=== PATIENT | female | born 1945 | race Caucasian/White ===

== ENCOUNTER 2018-04-25 06:57 | Inpatient (IN) ==
[2018-04-25] MEDS ORDERED: Chlorhexidine Gluconate 2% 1 Pack (2 Cloths) TOPICAL SCH (07:30)
[2018-04-25] MEDS ORDERED: Metoprolol Tartrate 25 MG Tablet PO SCH (07:30)
[2018-04-25] MEDS ORDERED: Sodium Chlor 0.9% Inj 500 ML IV.SIG SCH (08:00)
[2018-04-25] MEDS ORDERED: Vancomycin Inj 1 GM/200 ML PIGGYBACK IV.SIG ONE (08:10)
[2018-04-25] MEDS ORDERED: Dexamethasone Inj 20 MG/5 ML Vial ONE (08:11)
[2018-04-25] MEDS ORDERED: Bupivacaine Liposomal PF 1.3% Inj 20 ML Vial ONE (09:00)
[2018-04-25] MEDS ORDERED: Bupivacaine PF 0.5% Inj 30 ML Vial ONE (09:01)
[2018-04-25] MEDS ORDERED: Bupivacaine/Dextrose 0.75% Inj 2 ML Ampul ONE (09:01)
[2018-04-25] MEDS ORDERED: Propofol Inj 500 MG/50 ML Vial ONE (09:30)
[2018-04-25] MEDS ORDERED: Chlorhexidine 4% Topical 120 APPLIC/120 ML Bottle TOPICAL SCH (10:30)
[2018-04-25] MEDS ORDERED: Sodium Chlor 0.9% Inj 73.07 ML, Ropivacaine 0.5% PF Inj 24.63 ML, Ketorolac Inj 30 MG, ... P-ARTICULR SCH ×5 (10:30)
[2018-04-25] MEDS ORDERED: Vancomycin Inj 1,000 MG in Sodium Chlor 0.9% Inj 250 ML IV.SIG SCH (11:00)
[2018-04-25] MEDS ORDERED: ceFAZolin Inj 2,000 MG in Sodium Chlor 0.9% Inj 100 ML IV.SIG SCH (11:00)
[2018-04-25] MEDS ORDERED: Tranexamic Acid Inj 656 MG in Sodium Chlor 0.9% Inj 100 ML IV.SIG SCH ×2 (11:00→14:00)
[2018-04-25] MEDS ORDERED: Aluminum/Magnesium/Simethacone Susp 30 ML UDC PO PRN (11:40)
[2018-04-25] MEDS ORDERED: Bisacodyl 10 MG Supp RECTAL PRN (11:40)
[2018-04-25] MEDS ORDERED: Post-op Orders (for Pharmacy) OTHER STA (11:40)
[2018-04-25] MEDS ORDERED: Morphine Inj 4 MG/ML Vial IV.PUSH PRN (11:40)
--- NOTE | 2018-04-25 11:44 | P.OP ---
- Preoperative Diagnosis (1) Osteoarthritis of left knee - Postoperative Diagnosis (1) Osteoarthritis of left knee Date of procedure: 04/25/18 Procedure: Left total knee arthroplasty Surgeon: Parth Londono MD Mixer Lever Operator: SAE Do The surgical procedure was assisted by my Advanced Registered Nurse Practitioner. My CIGARETTE ROLLER presence was necessary throughout this case for the manipulation and positioning of the surgical extremity. My CIGARETTE ROLLER was assisting me throughout the duration of this procedure. The skill set of an Advance Registered Nurse Practitioner was medically necessary to complete this procedure. During the surgical case, the surgical assistant certified was working at the back table and the Advance Registered Nurse Practitioner was directly assisting me. Operation and Findings: IMPLANTS: DePuy Attune: Patella: size 35. Femur, posterior stabilized size 6 narrow. Tibia, rotating platform size 6. Tibial insert, rotating platform, posterior stabilized size 7 mm thickness. ESTIMATED BLOOD LOSS: 75 cc TOURNIQUET TIME: 36 minutes at 250 mmHg pressure. JUSTIFICATION FOR PROCEDURE: The patient has end-stage osteoarthritis to the knee. There is an attached conservative measures pathway form in the chart that describes the nonoperative measures that were undertaken prior to consideration of surgical management. The patient understood the risks and benefits of surgical management. See my office notes for further details PROCEDURE: The patient was brought back to the operative theatre. Adequate anesthesia was obtained. The patient received intravenous vancomycin and Ancef. The lower extremity was prepped and draped in the usual sterile fashion.The leg was exsanguinated, the tourniquet was raised. A standard anterior incision was performed followed by medial parapatellar arthrotomy was performed. End-stage arthritis was identified. Osteotomy of the patella was performed. We drilled holes for the patella. We trialed the patella component. We placed an intramedullary guide into the distal femur. We ultimately resected 11 mm off of the distal femur in 5 degrees of valgus. The remnants of the ACL and PCL were resected. Osteotomy of the proximal tibia was performed, resecting 7 mm off of the medial side. This was done in order to make sure that we had taken off enough to get under the significant lateral tibial plateau erosion. This was done with 3 degrees of posterior slope using an extramedullary guide. The distal end of the guide was placed in the mid aspect of the ankle. We did work on ligament balancing at this point. Ultimately we did need to recess the lateral collateral ligament and the iliotibial band. The popliteus tendon remains intact. This gave us very good ligament balancing. Prior to this there was significant imbalance. The femur was sized, and four chamfer cuts were completed in 3 of external rotation. We then cut the central box in the distal femur to replace the PCL. We resected the remnants of the menisci and removed osteophytes off of the femur and tibia. We then trialed the knee. We punched the tibia for the keel, and then used standard technique to cement in components. Excess cement was removed. We trialed the knee again and the final polyethylene thickness was chosen to provide extension to 0 degrees, and flexion of 140 degrees to gravity. The ligaments were appropriately balanced. Lateral release was necessary to obtain excellent patellofemoral tracking. The tourniquet was released and adequate hemostasis was obtained. An intra- articular injection of a ropivacaine cocktail was injected. The posterior knee was inspected for excess cement, which was removed. The final polyethylene was put into position after thorough irrigation. We then closed deep fascia with a #2 Stratafix followed by skin with 2-0 Vicryl followed by Dermabond dressing. Postop plan is to weight-bear as tolerated. DVT prophylaxis will be performed with SCDs, PATRICIA bearden, early mobilization, and Lovenox followed by aspirin.
[2018-04-25] MEDS ORDERED: Glycopyrrolate Inj 1 MG/5 ML Syringe IV.PUSH ONE (12:00)
[2018-04-25] MEDS ORDERED: Phenylephrine/NS 1000 MCG/10ML Syringe IV.PUSH ONE (12:00)
[2018-04-25] MEDS ORDERED: Lidocaine PF 1% Inj 5 ML Syringe INFILTRATN ONE (12:00)
[2018-04-25] MEDS ORDERED: fentaNYL Citrate Inj 100 MCG/2 ML Ampul ONE (12:09)
--- NOTE | 2018-04-25 13:34 | XR ---
EXAM DATE: 04/25/2018 1:18 PM EDT AGE/SEX: 72 years / Female INDICATIONS: Post op left total knee replacement. CLINICAL DATA: This is the patient's initial encounter. Patient reports that signs and symptoms have been present for 1 day and indicates a pain score of 5/10. MEDICAL/SURGICAL HISTORY: None. None. COMPARISON: No prior exams available for comparison. FINDINGS: AP and lateral views of the knee were obtained and demonstrate the patient is status post arthroplast y. The distal femoral and tibial components are intact and in normal alignment. There are postoperati ve changes involving the patella. Soft tissue swelling and gas is noted anteriorly. CONCLUSION: Expected postoperative changes status post arthroplasty. Electronically signed by: Wil Rossi MD 04/25/2018 1:33 PM EDT
[2018-04-25] MEDS ORDERED: Zolpidem Tartrate 5 MG Tablet PO PRN (21:00)
[2018-04-25] MEDS: Sod Chloride 0.9% Inj 1,000 ML IV.CONT SCH (21:04)
[2018-04-25] MEDS: Senna/Docusate Sodium 8.6/50 MG Tablet PO SCH (21:04)
[2018-04-25] MEDS: Multivitamin/Minerals Therapeutic Tablet PO SCH (21:05)
[2018-04-26] MEDS: Sod Chloride 0.9% Inj 1,000 ML IV.CONT SCH ×2 (00:10→14:07)
[2018-04-26 04:55] LABS: Hematocrit 24.3 % (35.0-46.0); Hemoglobin 8.6 gm/dL (11.6-15.3)
--- NOTE | 2018-04-26 07:42 | P.DCO ---
- Physical Therapy Physical Therapy: Gait training, Transfer training, bed to chair Knee: Total knee Left Lower Extremity Weight Bearing: Weight bearing as tolerated Left Lower Extremity Range of Motion: Active ROM - Nursing Nursing: Gael lane Dressing changes: Do not change dressing Additional instructions: First dressing change in the office - Certification Need for Home Health services: I have seen patient Yoko Gentile on 04/26/18. My clinical findings support the need for the requested home health care services because: Need for Home Health Services: Limited ability to care for self, High risk of falls Homebound Certification: I certify that my clinical findings support that this patient is homebound because: Homebound Certification: Post-op weakness, Unsteady gait/balance
[2018-04-26] MEDS ORDERED: Dexamethasone Inj 20 MG/5 ML Vial IV.PUSH ONE (08:00)
[2018-04-26] MEDS ORDERED: LIRAGLUTIDE SQ SCH (09:00)
[2018-04-26] MEDS ORDERED: Lisinopril 10 MG Tablet PO SCH (09:00)
[2018-04-26 10:05] VITALS: RESP 16; O2SAT 97
[2018-04-26] MEDS: Multivitamin/Minerals Therapeutic Tablet PO SCH (10:11)
[2018-04-26] MEDS: Senna/Docusate Sodium 8.6/50 MG Tablet PO SCH (10:12)
[2018-04-26] MEDS ORDERED: Enoxaparin Inj 40 MG/0.4 ML Syringe SQ SCH (11:00)
[2018-04-26 14:56] VITALS: BP 97/60; PULSE 87; TEMP 99
--- NOTE | 2018-04-28 21:44 | P.DS ---
Date of admission: 04/25/18 06:57 Primary care physician: Kenneth Lopez MD Attending physician on discharge: Parth Londono Anticipated date of discharge: 04/26/18 Brief History from admission: The patient has a history of left knee severe osteoarthritis. The patient was admitted to the hospital for a left total knee arthroplasty. DS: Diagnosis - Discharge Diagnosis (1) Osteoarthritis of left knee Status: Acute Diagnosis: Principal (2) Status post total knee replacement, left Status: Acute Diagnosis: Principal DS: Summary Hospital Course: The patient was admitted to the hospital for severe osteoarthritis of the left knee to have a left total knee arthroplasty. The patient's surgery went well with no complication. The patient is on a [diabetic] diet. The patient's DVT prophylaxis includes use of [Lovenox followed by aspirin]. The patient is weightbearing as tolerated. The patient was discharged [home with home health] and will follow up in the office with Dr. Londono and/or SAE Brandon as previously scheduled. - Time Spent with Patient Total time spent providing and/or coordinating discharge services: Greater than 30 minutes - Quality: VTE Deep Vein Thrombosis/Pulmonary Embolism Present on Admission: No Exam Narrative: The patient was discharged prior to evaluation today by the undersigned. The patient had a clean, dry, and intact dressing per conversation with the nurse. The patient's postop labs were reviewed prior to discharge by the undersigned. The patient was instructed in her postop plan of care prior to surgery and reinforced today by staff per the undersigned's request. The patient was given her postop medications prior to surgery. The patient understands that home health will be initiated tomorrow. The patient also understands she can contact the office at any time and speak to the on-call physician with any concerns or questions. Results Procedures completed during hospitalization: Left total knee arthroplasty - Impressions ITS Impressions Knee X-Ray 04/25/18 11:40 CONCLUSION: Expected postoperative changes status post arthroplasty. Discharge Plan - Discharge Disposition Patient Disposition: W/Home Health Service - Discharge Condition Condition: Stable - Discharge Order Discharge Orders: Discharge Order (Routine); Ordered 04/26/18 Ordered By: Liang Solomon - Discharge Details Anticipated Discharge Date: 04/26/18 - Physicians Team Primary Care Provider: Kenneth Lopez Attending Provider: Parth Londono Other Providers: [facility] - Rxs /Orders / Referrals /Forms Prescriptions: Continue calcium carbonate [Calcium 600] 600 mg calcium (1,500 mg) Tablet 600 mg PO DAILY cetirizine [Zyrtec] 10 mg Tablet 10 mg PO DAILY cholecalciferol (vitamin D3) [Vitamin D3] 2,000 unit Tablet 2,000 unit PO DAILY liraglutide [Victoza 2-Kenneth] 0.6 mg/0.1 mL (18 mg/3 mL) Pen Injector 1.8 mg SUB-Q DAILY lisinopril 10 mg Tablet 10 mg PO DAILY metformin 500 mg Tablet 500 mg PO BID [id number]-[id number]-lutein [Centrum Silver Women] 8 mg iron-400 mcg-300 mcg Tablet 1 tab PO DAILY Ambulatory Orders / Order Sets / DME: Adjustable Commode 3-in-1 (1 each) (Routine) Location: Determined by Patient Ordered By: Liang Solomon CPM - Continuous Passive Motion Machine (1 each) (Routine) Location: Determined by Patient Ordered By: Liang Solomon Walker With Front Wheels (1 each) (Routine) Location: Determined by Patient Ordered By: Liang Solomon Referrals: Kenneth Lopez MD [Primary Care Provider] - See Instructions Parth Londono MD [Physician] - See Instructions (F/u in the office as previously scheduled with Dr. Londono or Kirk Solomon [facility]) - Discharge Instructions Patient Printed Instructions: How to Choose and Use a Walker (GEN), Fall Prevention (DC), PATRICIA Hose (DC), Continuous Passive Motion Machine (DC), Knee Replacement (DC) - Post Discharge Care Plan Care Plan Goals: Discharge Care Plan Goals for Total Knee Replacement You have undergone knee replacement surgery. Your doctor replaced your painful joint with an artificial joint to relieve pain and restore movement. Here are some goals to help you heal well. Directions to Meet your Goals: 1. Activity & Exercises: * Take pain medicine as directed by your doctor. * Sit in chairs with arms. The arms make it easier for you to stand up or sit down. * Dont sit for more than 30 to 45 minutes at one time. * Nap if you are tired, but dont stay in bed all day. * Sleep with a pillow under your ankle, not your knee. Be sure to change the position of your leg during the night. * Wear the support stockings you were given in the hospital as directed by your surgeon. 2. Prevent Falls/Injury: The monzon to successful recovery is movement with walking and exercising your knee as directed by your doctor. * Arrange your household to keep the items you need handy. Keep everything else out of the way. * Remove items that may cause you to fall, such as throw rugs and electrical cords. * Use nonslip bath mats, grab bars, an elevated toilet seat, and a shower chair in your bathroom * Sit on a shower stool or chair when you shower to keep from falling. * Until your balance, flexibility, and strength improve, use a cane, crutches, a walker, handrails, or someone to help you. * Keep your hands free by using a backpack, chris pack, apron, or pockets to carry things * Walk up and down stairs with support. Try one step at a time. Use the railing if possible. * Dont drive until your doctor says its OK. * Dont drive while you are taking opioid pain medicine. 3. Precautions: * Prevent infection. Any infection will need to be treated immediately. Call your doctor right away if you think you might have an infection. * Tell your dentist that you have an artificial joint and take antibiotics as prescribed before any dental work. * Tell all your healthcare providers about your artificial joint before any medical procedure. * Maintain a healthy weight. Get help to lose any extra pounds. Added body weight puts stress on the knee. * Your medications may include blood-thinning medicine to prevent blood clots or antibiotics to prevent infection-prevent any falls or cuts 4. Incision Care: * Prevent infection by washing your hands often. If an infection occurs, it will need to be treated right away. * Call your doctor right away if you think you may have an infection. Symptoms include a fever or an incision that leaks white, green, or yellow fluid. * Don't soak your incision in water until your doctor says its OK. This means no hot tubs, bathtubs, or swimming pools. * Follow your doctor's instructions for changing the dressing. * Dont rub the incision, or apply creams or lotions to it. * If you notice any redness or drainage around the bandage site, contact your surgeon's office immediately. 5. Follow-Up: Do Not miss your follow-up appointment. Keep up with all your appointments and yearly check ups When to call your doctor: Call your doctor right away if you have: Fever of 100.4F (38C) or higher, or as directed by your doctor Shaking chills Stiffness, or inability to move the knee Increased swelling in your leg Increased redness, tenderness, or swelling in or around the knee incision Drainage from the knee incision Increased knee pain Call 911: Call 911 right away if you have: Chest pain Shortness of breath Any pain or tenderness in your calf
== END 2018-04-26 14:58 | disposition home health service (06) ==
LOC: HSDI 06:57 → N06 15:13
PROVIDERS: ADMIT Orthopaedic Surgery; ATTEND Orthopaedic Surgery